=== PATIENT | male | born 1995 | race African-American/Black ===

== ENCOUNTER 2016-09-12 08:36 | Emergency (ER) | payer OTHER ==
[2016-09-12 09:15] LABS: BASOPHIL 0.2 % (0-2); EOSINOPHIL 0.4 % (0-5); HCT 46.5 % (42.0-52.0); HGB 16.9 g/dl (13.2-18.0); LYMPHOCYTE 10.4 % (15-48); MCH 30.1 pg (25.0-31.0); MCHC 36.3 g/dL (32.0-36.0); MCV 82.9 fL (78.0-100.0); MONOCYTE 10.9 % (0-12); MPV 9.2 fL (6.0-9.5); NEUTROPHIL 78.1 % (41-80); PLT 265 K/uL (150-400); RBC 5.61 M/uL (4.70-6.00); RDW 12.8 % (11.5-14.0); WBC 13.3 K/uL (4.0-10.5)
[2016-09-12 09:28] LABS: LACTIC ACID 1.3 mmol/L (0.5-2.2)
[2016-09-12 09:29] LABS: AMPHETAMINES NEGATIVE (NEGATIVE); BENZODIAZEPINES NEGATIVE (NEGATIVE); COCAINE NEGATIVE (NEGATIVE); MARIJUANA (THC) NEGATIVE (NEGATIVE)
[2016-09-12 09:30] LABS: BARBITURATES NEGATIVE (NEGATIVE); METHADONE NEGATIVE (NEGATIVE); TRICYCLIC ANTIDEPRESSANT NEGATIVE (NEGATIVE)
[2016-09-12 09:30] LABS: ALBUMIN 4.7 g/dL (3.5-5.0); BILIRUBIN - TOTAL 0.8 mg/dL (0.1-1.0); CREATININE 1.2 mg/dL (0.7-1.2); GLOBULIN (CALCULATION) 3.1 g/dL (2.2-4.2); POTASSIUM 3.8 mmol/L (3.5-5.1); TOTAL PROTEIN 7.8 g/dL (6.4-8.3)
[2016-09-12 09:31] LABS: ACETAMINOPHEN (TYLENOL) < 5.0 ug/mL (10.0-30.0); ALCOHOL (ETOH) MEDICAL NONE DETECTED; SALICYLATE < 6 ug/mL (0-300)
== END 2016-09-12 11:21 | disposition home or self-care (01) ==
LOC: FER 08:36
PROVIDERS: Internal Medicine
DX: R55 Syncope and collapse (principal); L02.01 Cutaneous abscess of face; R51 Headache; R53.1 Weakness
CPT/HCPCS: 36415; 36600; 70450; 71010; 80053; 80305; 82803; 83605; 85025; 85379; 86403; 87040; 87070; 87077; 87186; 87205; 93005; G0480